=== PATIENT | male | born 1955 | race Caucasian/White ===

== ENCOUNTER 2022-09-13 11:04 | Emergency (ER) | payer OTHER, SELFPAY ==
[2022-09-13 11:05] VITALS: BP 164/88; PULSE 98; RESP 17; O2SAT 94; BMI 41.8
[2022-09-13 11:14] VITALS: BP 164/88; PULSE 94; RESP 18; O2SAT 93
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
[2022-09-13 12:20] VITALS: BP 103/80; PULSE 94; RESP 16; O2SAT 95
[2022-09-13 13:33] VITALS: BP 103/80; PULSE 94; RESP 16; O2SAT 95
--- NOTE | 2022-09-14 15:30 | DCPLANNER ---
manager of merchandising called patient due to no primary care physician - no answer at this time.
== END 2022-09-13 13:36 | disposition home or self-care (01) ==
PROVIDERS: Emergency Provider Emergency Medicine
DX: S30.0XXA Contusion of lower back and pelvis, initial encounter (principal); S22.021A Stable burst fracture of second thoracic vertebra, initial encounter for closed fracture; S81.011A Laceration without foreign body, right knee, initial encounter; V69.9XXA Occupant (driver) (passenger) of heavy transport vehicle injured in unspecified traffic accident, initial encounter
CPT/HCPCS: 72128; 72131; 99284